=== PATIENT | male | born 1990 | race Caucasian/White ===

== ENCOUNTER 2019-03-18 22:39 | Emergency (ER) | payer OTHER ==
[~2019-03-18] VITALS: Ht 170.2 cm; Wt 63.5 kg
[~2019-03-18 22:39] MED LIST: CIP03OS OP; CYC1OS OP
[2019-03-19 00:02] LABS: Urine Bacteria FEW /hpf (None Seen); Urine Blood Negative /uL (Negative); Urine Hyaline Cast FEW /lpf (0 - 2); Urine Mucus FEW (None Seen); Urine Specific Gravity 1.028 (1.001-1.035); Urine WBC 2 /hpf (0 - 3)
[2019-03-19 00:15] LABS: Alcohol, Urine < 3.0 mg/dL (0-5); Amphetamine Screen, Urine POSITIVE (NEGATIVE); Barbiturate Scree,Urine NEGATIVE (NEGATIVE); Benzodiazephine Screen, Urine NEGATIVE (NEGATIVE); Cannabinoid Screen, Urine POSITIVE (NEGATIVE); Cocaine Screen, Urine NEGATIVE (NEGATIVE); Opiate Scree,Urine NEGATIVE (NEGATIVE); Phencyclidine Screen, Urine NEGATIVE (NEGATIVE)
[2019-03-19 00:29] VITALS: BP 118/80
[2019-03-19] MEDS ORDERED: ACETAMINOPHEN 325 MG TAB PO ONE ×2 (00:35→00:45)
[2019-03-19] MEDS ORDERED: ONDANSETRON ODT 4 MG TAB PO ONE ×2 (00:35→00:45)
== END 2019-03-19 00:43 | disposition home or self-care (01) ==
LOC: EDBD 22:39 → ER 22:39
DX: F15.10 Other stimulant abuse, uncomplicated (principal); F12.10 Cannabis abuse, uncomplicated; F17.210 Nicotine dependence, cigarettes, uncomplicated; R51 Headache; F41.9 Anxiety disorder, unspecified; F20.9 Schizophrenia, unspecified
CPT/HCPCS: 70450; 80307; 81001; 99284; Q0162

== ENCOUNTER 2021-01-12 00:07 | Emergency (ER) | payer OTHER ==
[~2021-01-12] VITALS: Ht 177.8 cm; Wt 68.0 kg
[2021-01-12 00:25] VITALS: BP 119/81
[2021-01-12] MEDS ORDERED: SODIUM CHLORIDE 0.9% 1,000 ML IV ONE (02:00)
[2021-01-12] MEDS ORDERED: ceFAZolin 1GM/50ML 100 ML IV ONE (02:00)
[2021-01-12] MEDS ORDERED: TETANUS-DIPTH-ACEL PERTUSSIS 0.5ML SYR Tdap IM ONE (02:00)
== END 2021-01-12 06:22 | disposition left against medical advice (07) ==
LOC: EDUNIT# 00:07 → ER 00:07
DX: T17.208A Unspecified foreign body in pharynx causing other injury, initial encounter (principal); F17.210 Nicotine dependence, cigarettes, uncomplicated; Z79.2 Long term (current) use of antibiotics; Z79.899 Other long term (current) drug therapy; W45.8XXA Other foreign body or object entering through skin, initial encounter; Y93.89 Activity, other specified; Y92.89 Other specified places as the place of occurrence of the external cause; Y99.8 Other external cause status
CPT/HCPCS: 70490

== ENCOUNTER 2022-03-03 10:44 | Emergency (ER) | payer OTHER ==
[~2022-03-03] VITALS: Ht 172.7 cm; Wt 63.6 kg
[2022-03-03 11:21] VITALS: BP 137/87
[2022-03-03] MEDS ORDERED: TETANUS-DIPTH-ACEL PERTUSSIS 0.5ML SYR Tdap IM ONE (12:15)
== END 2022-03-03 13:09 | disposition home or self-care (01) ==
LOC: ER 10:44 → EDBD 10:44 → ER 13:09
DX: S39.94XA Unspecified injury of external genitals, initial encounter (principal); F17.210 Nicotine dependence, cigarettes, uncomplicated; F12.90 Cannabis use, unspecified, uncomplicated; F15.90 Other stimulant use, unspecified, uncomplicated; F32.9 Major depressive disorder, single episode, unspecified; F20.9 Schizophrenia, unspecified; X58.XXXA Exposure to other specified factors, initial encounter; Y93.89 Activity, other specified; Y92.89 Other specified places as the place of occurrence of the external cause; Y99.8 Other external cause status
CPT/HCPCS: 90471; 90715